=== PATIENT | male | born 1955 | race Caucasian/White ===

== ENCOUNTER 2018-07-13 09:18 | Outpatient (CLI) | payer BC, SELFPAY ==
--- NOTE | 2018-07-13 08:33 | DI.RAD_ITS ---
SYMPTOM/DIAGNOSIS: INJURY, PAIN LEFT KNEE: Three views. No priors. No acute or healing fracture or dislocation is identified. The soft tissues are grossly unremarkable. Vascular calcifications are seen in the soft tissues. IMPRESSION: No acute abnormality.
== END 2018-07-13 09:38 ==
PROVIDERS: PCP Internal Medicine; Visit Provider Student in an Organized Health Care Education/Training Program
DX: M25.562 Pain in left knee (principal)
CPT/HCPCS: 73562

== ENCOUNTER 2019-02-03 14:34 | Emergency (ER) | payer BC, SELFPAY ==
[2019-02-03 14:46] VITALS: BP 160/95; PULSE 85; RESP 16; TEMP 36.7; O2SAT 97
--- NOTE | 2019-02-03 15:46 | W.ED.GENAD ---
Discharge Plan Disposition Patient Disposition: HOME Condition: Good Discharge Details Chief Complaint: Laceration Clinical Impression: Laceration of left wrist Primary Care Provider: Juvencio Jane ED Provider: Yvonne Quiros Home Meds and New Rx's Prescriptions: Continued atorvastatin [Lipitor] 40 MG tablet 40 mg PO DAILY RF: 0 loratadine 10 MG tablet,disintegrating 10 mg PO DAILY RF: 0 aspirin [Aspir-81] 81 MG tablet,delayed release (DR/EC) 81 mg PO DAILY RF: 0 ibuprofen [Advil] 200 MG tablet 600 mg PO BID PRNRF: 0 Discharge Instructions Instructions: Laceration (ED) Additional Instructions: Keep wound clean, dry, covered. Monitor for signs of infection getting redness, warmth, drainage, increased pain, fever/chills. If you develop these or other new/worsening symtpoms please seek care urgently once again. Keep current dressing on for the next 24 hours, after that may change and replace with bandaid. Return in 7-10 days for suture removal. May wash with running water and soap but please do not soak. Referrals: Juvencio Jane [Primary Care Provider] - Discharge Data Discharge Date/Time-TO BE ENTERED AT DEPARTURE: 02/03/19 16:08 Medical Decision Making Patient is a 63-year-old [id number] male presents today with chief complaint of left wrist laceration. 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 Has a 3 cm flap laceration to the left wrist along the radial side. No sensory deficit. Wound into subcutaneous tissue, no active bleeding. Reports that tetanus was within the last 5 years. Denies other injury the time of the incident. Patient I discussed risk/benefits as well as expected procedural steps of the suture closure. He voiced understanding and wished to proceed. Please see procedure note. This is performed using standard sterile technique. Wound was copiously irrigated explored but depth in a bloodless field. No foreign body or debris was noted. Tolerated procedure well. Wound care was discussed in depth. He was given return precautions, in particular signs of infection. He will return to the emergency department in 7 to 10 days for suture removal. All his concerns were addressed and is agreement this plan. HPI General Mode of arrival: ambulatory. Date/Time Provider Initiated Documentation: 02/03/19 15:46. Limitations to Documentation: no limitations. Information obtained by: patient and RN notes reviewed. History of Present Illness 63 year old M presents to the emergency department with the chief complaint of left wrist laceration, described as mild, with intensity rated at 3. Quality is described as aching, and is localized to the left and upper extremity. Patient reports no radiation. Patient started experiencing this hour(s) and it has been constant. No relieving factors improve symptom(s), No exacerbating factors reported . Patient notes no other symptoms.. Patient did receive the following treatments prior to arrival, none Related Data Home Medications Medication Instructions Recorded Confirmed aspirin [Aspir-81] 81 mg PO DAILY tab-cap 11/15/15 02/03/19 atorvastatin [Lipitor] 40 mg PO DAILY tab-cap 11/15/15 02/03/19 ibuprofen [Advil] 600 mg PO BID PRN 11/15/15 02/03/19 loratadine 10 mg PO DAILY tab-cap 11/15/15 02/03/19 Allergies Allergy/AdvReac Type Severity Reaction Status Date / Time No Known Drug Allergies Allergy Unverified 02/03/19 14:50 General Stated Complaint: Laceration ORALIA: 4 Review of Systems Constitutional Constitutional: Reports as per HPI, Denies chills and Denies fever(s) Musculoskeletal Musculoskeletal: Reports as per HPI Integumentary/Breasts Skin/Breast: Reports as per HPI Neurologic Neurologic: Reports as per HPI, Denies sensory deficit and Denies paresthesias [facility] Social History Smoking/Tobacco Use Status: Never Alcohol Intake: current Alcohol Intake frequency: 0-2 drinks per day Substance use type: does not use Do you feel safe at home: Yes Do you feel safe in your relationship?: Yes Exam Const General: cooperative, healthy appearing, comfortable, no acute distress and well developed Nutritional Appearance: average body habitus and well nourished Orientation: alert and awake Resp Effort & Inspection: normal respiratory effort, able to speak in complete sentences and no respiratory distress Cardio Rate: regular rate Rhythm: regular rhythm Skin Trauma: laceration (3cm flap laceration to radial side left wrist) Neuro General: alert and awake Cognition: normal cognition Speech: speech normal Gait: normal gait Sensory Exam: no sensory deficits noted Extrem Left upper extremity: full ROM, normal capillary refill, no joint enlargement, wrist Details: tenderness (over area of laceration. No active bleeding), normal ROM and normal vascular exam; inspection abnormal (laceration) and no swelling and hand Details: normal to inspection; abnormal to inspection (left laceration) Hand/finger images: 1. laceration. No active bleeding. Into subcutaneous tissue Psych Appearance: grossly normal and well kempt Mental Status: mental status grossly normal Speech and Movement: speech and movement normal Course Vital Signs Vital signs: Vital Signs Temperature 36.7 C 02/03/19 14:46 Pulse 85 02/03/19 14:46 Respiratory Rate 16 02/03/19 14:46 Blood Pressure 160/95 H 02/03/19 14:46 Pulse Oximetry 97 02/03/19 14:46 Temperature 36.7 C 02/03/19 14:46 Temperature Source Tympanic 02/03/19 14:46 Pulse 85 02/03/19 14:46 Respiratory Rate 16 02/03/19 14:46 Respiratory Effort Non-Labored 02/03/19 14:49 Blood Pressure 160/95 H 02/03/19 14:46 Blood Pressure Position Sitting 02/03/19 14:46 Pulse Oximetry 97 02/03/19 14:46 Oxygen Delivery Method Room Air 02/03/19 14:46 Oxygen Flow Rate 0 02/03/19 14:46 Pain Level 3 02/03/19 14:50 Procedures Laceration Laceration 1: Site: upper extremity Side (If applicable): left Size (cm): 3 Description: flap Depth: simple, single layer Local Anesthetic: Lidocaine 1% Amount of anesthesia used (mL): 4 Pre-repair: wound explored, irrigated extensively and deep structures intact Skin layer closed with: nylon Size (cm): 5-0 Number of sutures: 7
[2019-02-03 16:10] VITALS: PULSE 86; RESP 16; TEMP 36.7; O2SAT 97
== END 2019-02-03 16:08 | disposition home or self-care (01) ==
PROVIDERS: Emergency Provider Physician Assistant; PCP Internal Medicine
DX: S61.512A Laceration without foreign body of left wrist, initial encounter (principal); W45.8XXA Other foreign body or object entering through skin, initial encounter
CPT/HCPCS: 12002

== ENCOUNTER 2019-02-11 09:17 | Emergency (ER) | payer BC, SELFPAY ==
[2019-02-11 09:22] VITALS: BP 143/87; PULSE 69; RESP 16; TEMP 36.4; O2SAT 95
--- NOTE | 2019-02-11 09:36 | ED.GENADUL_ITS ---
Discharge Plan Disposition Patient Disposition: HOME Condition: Improving Discharge Details Chief Complaint: SutureRem Clinical Impression: Encounter for removal of sutures Primary Care Provider: Juvencio Jane ED Provider: Cyrus Rodríguez Home Meds and New Rx's Prescriptions: Continued atorvastatin [Lipitor] 40 MG tablet 40 mg PO DAILY RF: 0 loratadine 10 MG tablet,disintegrating 10 mg PO DAILY RF: 0 aspirin [Aspir-81] 81 MG tablet,delayed release (DR/EC) 81 mg PO DAILY RF: 0 ibuprofen [Advil] 200 MG tablet 600 mg PO BID PRNRF: 0 Discharge Instructions Additional Instructions: May resume normal routine and activities. The Steri-Strips were crural and may be removed in 5 to 7 days time. Return for any acute concern Medical Decision Making 63-year-old male with left wrist laceration 8 days ago, presents for suture removal. Removed without difficulty, Steri-Strips placed, discussed with him home management. Stable for discharge. HPI General Mode of arrival: ambulatory . Date/Time Provider Initiated Documentation: 02/11/19 09:18 . Limitations to Documentation: no limitations . Information obtained by: patient . History of Present Illness 63 year old M presents to the emergency department with the chief complaint of Left wrist suture removal, no complaints, and is localized to the left and upper extremity. Patient started experiencing this day(s) No relieving factors imp rove symptom(s), No exacerbating factors reported . Patient notes no other symptoms.. Patient did receive the following treatments prior to arrival, none Related Data Home Medications Medication Instructions Recorded Confirmed aspirin [Aspir-81] 81 mg PO DAILY tab-cap 11/15/15 02/11/19 atorvastatin [Lipitor] 40 mg PO DAILY tab-cap 11/15/15 02/11/19 ibuprofen [Advil] 600 mg PO BID PRN 11/15/15 02/11/19 loratadine 10 mg PO DAILY tab-cap 11/15/15 02/11/19 Allergies Allergy/AdvReac Type Severity Reaction Status Date / Time No Known Drug Allergies Allergy Unverified 02/11/19 09:24 General Stated Complaint: SutureRem ORALIA: 5 Review of Systems Review of Systems Narrative: No fever, chills, discharge. [facility] Medical History (Updated 02/11/19 @ 09:25 by Laureen Moody) Hypercholesterolemia (Acute) Osteoarthritis (Chronic) Social History Smoking/Tobacco Use Status: Never Alcohol Intake: current Alcohol Intake frequency: 0-2 drinks per day Substance use type: does not use Do you feel safe at home: Yes Do you feel safe in your relationship?: Yes Exam Narrative Exam Narrative: GEN: awake, alert, oriented 3. Pleasant, well groomed, interactive. HEAD: Normocephalic, atraumatic EXT: Full ROM, no edema, no rash. Left volar wrist radial aspect with curvili near healing laceration. No erythema or discharge. Neuro: Grossly normal neurologic exam, conversant, interactive. Psych: Speech fluent, thoughts congruent, affect normal Course Vital Signs Vital signs: Vital Signs Temperature 36.4 C L 02/11/19 09:22 Pulse 69 02/11/19 09:22 Respiratory Rate 16 02/11/19 09:22 Blood Pressure 143/87 H 02/11/19 09:22 Pulse Oximetry 95 02/11/19 09:22 Temperature 36.4 C L 02/11/19 09:22 Temperature Source Skin 02/11/19 09:22 Pulse 69 02/11/19 09:22 Respiratory Rate 16 02/11/19 09:22 Respiratory Effort Non-Labored 02/11/19 09:25 Blood Pressure 143/87 H 02/11/19 09:22 Pulse Oximetry 95 02/11/19 09:22 Pain Level 0 02/11/19 09:22
== END 2019-02-11 09:38 | disposition home or self-care (01) ==
PROVIDERS: Emergency Provider Emergency Medicine; PCP Internal Medicine
DX: S61.512D Laceration without foreign body of left wrist, subsequent encounter (principal); Z48.02 Encounter for removal of sutures

== ENCOUNTER 2019-07-17 15:43 | Outpatient (CLI) | payer BC, SELFPAY ==
--- NOTE | 2019-07-17 15:30 | DI.RAD_ITS ---
EXAM: XR HAND LT COMPLETE INDICATION: left thumb pain. COMPARISON: No exams were available for comparison TECHNIQUE: 2D digital imaging was performed. FINDINGS: There are severe degenerative changes at the 1st carpal metacarpal joint. There is prominent periart icular spurring and subchondral cyst formation. Degenerative changes are also noted at the interphal angeal joints of the fingers and 1st metacarpophalangeal joint. IMPRESSION: Degenerative changes, most severe at the 1st carpal metacarpal joint. DATA REPOSITORY: RADIATION DOSE DELIVERED:
== END 2019-07-17 16:03 ==
PROVIDERS: PCP Internal Medicine; Visit Provider Physician Assistant
DX: M79.645 Pain in left finger(s) (principal); M18.12 Unilateral primary osteoarthritis of first carpometacarpal joint, left hand; M19.042 Primary osteoarthritis, left hand
CPT/HCPCS: 73130

== ENCOUNTER 2020-05-27 09:07 | Outpatient (CLI) | payer BC, SELFPAY ==
--- NOTE | 2020-05-27 09:06 | DI.RAD_ITS ---
EXAM: XR KNEE LT 3V AP,LAT,FABIOLA CLINICAL HISTORY: left knee pain. TECHNIQUE: 2D digital imaging was performed. COMPARISON: CR XR knee LT 3V AP,lat,fabiola from 07/13/2018 FINDINGS: There is no evidence of fracture but there is a knee joint effusion which probably signifies internal derangement. There is mild narrowing of the medial compartment. No prominent osteophytes. No oste ochondral defects evident. No ominous bone lesions. IMPRESSION: Mild degenerative change medial compartment. Joint effusion noted. This may signify an internal kamala angement. DATA REPOSITORY: RADIATION DOSE DELIVERED:
== END 2020-05-27 09:27 ==
PROVIDERS: PCP Internal Medicine; Visit Provider Student in an Organized Health Care Education/Training Program
DX: M17.12 Unilateral primary osteoarthritis, left knee (principal); M25.462 Effusion, left knee
CPT/HCPCS: 73562

== ENCOUNTER 2021-01-21 02:24 | Outpatient (CLI) | payer BC, SELFPAY ==
--- NOTE | 2021-01-21 09:45 | DI.MRI_ITS ---
Exam(s) MR LOWER JOINT LT WO EXAM: MR LOWER JOINT LT WO CLINICAL HISTORY: LT KNEE PAIN, INTERNAL DERANGEMENT,M23.92. TECHNIQUE: Multiplanar multisequence MRI was performed.. COMPARISON: Plain films 27 May 2020 FINDINGS: BONES/JOINTS: No evidence of fracture. No evidence of bone lesion. Cartilage thinning over the holguin la, mild. No focal defect.. Severe cartilage thinning over the medial femoral condyle extending eva n to and involving underlying bone. Some adjacent high signal in the marrow. Thinning cartilage ove r medial tibial plateau but no focal defect. Mild cartilage thinning lateral femoral tibial joint. Moderate-sized joint effusion. LIGAMENTS: Anterior and posterior cruciate ligaments are intact. The medial and lateral collateral ligaments are intact. SOFT TISSUES: Mild anterior edema. Menisci: Degenerative changes of the medial meniscus particularly body and posterior horn with periph eral displacement. Horizontal inferior surfacing tear of the posterior horn abnormal stellate signal in the body. Lateral meniscus minimal degenerative changes. IMPRESSION: Degenerative changes of the medial femoral tibial joint compartment with irregular cartilage thinning extending down to bone of the medial femoral condyle. Degenerative changes of the medial meniscus w ith superimposed horizontal tear of the posterior horn and complex signal in the body. DATA REPOSITORY:
== END 2021-01-21 02:44 ==
PROVIDERS: PCP Internal Medicine; Visit Provider Student in an Organized Health Care Education/Training Program
DX: M23.92 Unspecified internal derangement of left knee (principal); M17.12 Unilateral primary osteoarthritis, left knee
CPT/HCPCS: 73721

== ENCOUNTER 2021-05-13 01:41 | Outpatient (CLI) | payer BC, SELFPAY ==
--- NOTE | 2021-05-13 10:31 | DI.RAD_ITS ---
Exam(s) XR HIP RT COMPLETE AP PELVIS EXAM: XR HIP RT COMPLETE AP PELVIS CLINICAL HISTORY: eval R hip,RT HIP PAIN, M25.551 TECHNIQUE: COMPARISON: No exams were available for comparison FINDINGS: Three views were obtained. There is moderate loss of the cartilaginous joint space of the right hip superiorly. There is subchondral sclerosis of the acetabulum and moderate marginal osteophyte for ma y villanueva of the acetabulum and to a lesser degree the femoral head. There are similar changes of moderate DJD of the left hip. IMPRESSION: Moderate DJD both hips. RADIATION DOSE DELIVERED: Total DLP
== END 2021-05-13 02:01 ==
PROVIDERS: PCP Internal Medicine; Visit Provider Student in an Organized Health Care Education/Training Program
DX: M25.551 Pain in right hip (principal); M16.11 Unilateral primary osteoarthritis, right hip
CPT/HCPCS: 73502

== ENCOUNTER 2021-07-10 00:57 | Outpatient (CLI) | payer BC, SELFPAY ==
--- NOTE | 2021-07-10 07:30 | DI.RAD_ITS ---
Exam(s) RF JOINT INJECTION FLUORO GUID EXAM: RF JOINT INJECTION FLUORO GUID CLINICAL HISTORY: R HIP INJ UNDER FLUORO,rt hip pain, m25.551 TECHNIQUE: Fluoroscopy provided. Radiologist not present. CONTRAST MATERIAL: None COMPARISON: No exams were available for comparison FINDINGS: Fluoroscopy was provided for Dr. Reyna during right hip steroid injection.. Submitted image(s) reveal needle tip at the lateral aspect femoral head-neck level. Radiopaque contr ast seen joint space Please refer to the procedure report for complete details. Cumulative Dose: justyna Pierson=0.45 mGy IMPRESSION: RADIATION DOSE DELIVERED:
--- NOTE | 2021-07-10 13:40 | W.PROCNOTE ---
Date of service: 07/10/21 Time of Service: 13:36 Procedure Note Date of procedure: 07/10/21 Procedure: Right Hip Injection with Fluoroscopic Guidance Surgeon/Proceduralist/Physician: Alfonso Reyna Procedure Diagnosis: Right Hip Osteoarthritis Procedure Indications: Christopher has had persistent pain of the RIGHT hip and groin. Noninvasive measures have been tried. To serve as both diagnostic and therapeutic, an injection under fluoroscopy was recommended. I had discussed the risks of the procedure and the patient elected to proceed. Procedure Description: Christopher was greeted in the flouroscopy room. The correct side was identified and the consent was reviewed with the patient and signed. The patient was then placed in the supine position on the fluoroscopy table. The RIGHT hip was then prepped with Chloraprep. The anterolateral injection starting point was identiifed by bony landmarks and fluoroscopy. The skin and soft tissue in the tract of the injection was anesthetized with 1% Lidocaine. A spinal needle was then inserted deep into the hip joint at the level of the lateral femoral neck under fluoroscopic guidance. A small amount of Omnipaque solution was injected to confirm intraarticular placement. Once confirmed, the hip was injected with 6cc of 0.5% Bupivicaine and 80mg of Depo-Medrol. A bandaid was placed on the injection site. The patient tolerated the procedure well and noted improvement in pre-injection pain.
[2021-07-10] MEDS: Bupivacaine 0.5% Pres-Free 10 ML VIAL 5 ML IJ (13:47)
[2021-07-10] MEDS: Omnipaque 300 MG/ML 10 ML BTL IJ (13:47)
[2021-07-10] MEDS: methylPREDNISolone ACETATE 80 MG/ML VIAL IM (13:48)
== END 2021-07-10 01:17 ==
PROVIDERS: PCP Internal Medicine; Visit Provider Student in an Organized Health Care Education/Training Program
DX: M25.551 Pain in right hip (principal); M16.11 Unilateral primary osteoarthritis, right hip; R10.31 Right lower quadrant pain
CPT/HCPCS: 77002; J1040

== ENCOUNTER → 2022-03-05 02:49 | Outpatient (CLI) | payer MEDICARE, SELFPAY ==
[2022-03-05] MEDS: Omnipaque 300 MG/ML 10 ML BTL IJ (14:02)
[2022-03-05] MEDS: methylPREDNISolone ACETATE 80 MG/ML VIAL IM (14:03)
[2022-03-05] MEDS: Bupivacaine 0.5% Pres-Free 10 ML VIAL 3 ML IJ (14:03)
--- NOTE | 2022-03-05 14:10 | DI.RAD_ITS ---
Exam(s) RF JOINT INJECTION FLUORO GUID EXAM: RF JOINT INJECTION FLUORO GUID CLINICAL HISTORY: ARTHRITIS RT HIP, RT HIP PAIN, FLUORO GUIDED INJECTION,M16.11 TECHNIQUE: 2D and realtime digital imaging was performed. COMPARISON: No exams were available for comparison FINDINGS: C-arm fluoroscopy was utilized by Dr. Reyna during right hip injection. Hard copy shows intra-art icular injection of the right hip. IMPRESSION: RADIATION DOSE DELIVERED: justyna Pierson=0.81 mGy Total DLP
--- NOTE | 2022-03-05 14:20 | W.PROCNOTE ---
Date of service: 03/05/22 Time of Service: 14:05 Procedure Note Date of procedure: 03/05/22 Procedure: Right Hip Injection with Fluoroscopic Guidance Surgeon/Proceduralist/Physician: Alfonso Reyna Procedure Diagnosis: Right Hip Osteoarthritis Procedure Indications: Christopher has had persistent pain of the RIGHT hip and groin. Noninvasive measures have been tried with previous success to an injection. To serve as both diagnostic and therapeutic, an injection under fluoroscopy was recommended. I had discussed the risks of the procedure and the patient elected to proceed. Procedure Description: Christopher was greeted in the flouroscopy room. The correct side was identified and the consent was reviewed with the patient and signed. The patient was then placed in the supine position on the fluoroscopy table. The RIGHT hip was then prepped with Chloraprep. The anterolateral injection starting point was identiifed by bony landmarks and fluoroscopy. The skin and soft tissue in the tract of the injection was anesthetized with 1% Lidocaine. A spinal needle was then inserted deep into the hip joint at the level of the lateral femoral neck under fluoroscopic guidance. A small amount of Omnipaque solution was injected to confirm intraarticular placement. Once confirmed, the hip was injected with 5cc of 0.5% Bupivicaine and 80mg of Depo-Medrol. A bandaid was placed on the injection site. The patient tolerated the procedure well and noted improvement in pre-injection pain.
== END ==
PROVIDERS: PCP Internal Medicine; Visit Provider Student in an Organized Health Care Education/Training Program
DX: M16.11 Unilateral primary osteoarthritis, right hip (principal); M25.551 Pain in right hip
CPT/HCPCS: 20610; 77002; J1040

== ENCOUNTER 2023-12-27 11:39 | Outpatient (CLI) | payer MEDICARE, SELFPAY ==
--- NOTE | 2023-12-27 08:15 | DI.RAD_ITS ---
Exam(s) XR HAND RT COMPLETE EXAM: XR HAND RT COMPLETE CLINICAL HISTORY: RIGHT HAND PAIN. TECHNIQUE: 2D digital imaging was performed of the right hand. Three images were obtained. AP, late ral and oblique views were obtained. COMPARISON: No exams were available for comparison FINDINGS: BONES: No acute fracture is present. No bony destructive lesion is seen. JOINTS: No dislocation present. There are marked degenerative changes seen in the hand characterized by joint space narrowing and osteophytes. The findings are most marked at the 1st CMC joint and the interphalangeal joints of the fingers. SOFT TISSUE: Normal. IMPRESSION: Marked osteoarthritis of the hand. DATA REPOSITORY: RADIATION DOSE DELIVERED:
== END 2023-12-27 11:40 | disposition home or self-care (01) ==
PROVIDERS: PCP Internal Medicine; Referring Provider Internal Medicine; Visit Provider Physician Assistant
DX: M17.12 Unilateral primary osteoarthritis, left knee; M18.11 Unilateral primary osteoarthritis of first carpometacarpal joint, right hand; M19.041 Primary osteoarthritis, right hand
CPT/HCPCS: 20610; J1010; 73130

== ENCOUNTER 2024-06-19 15:54 | Outpatient (CLI) | payer MEDICARE, SELFPAY ==
--- NOTE | 2024-06-19 15:38 | DI.RAD_ITS ---
Exam(s) XR KNEE LT 4V AP,LAT,FABIOLA,PAT EXAM: XR KNEE LT 4V AP,LAT,FABIOLA,PAT CLINICAL HISTORY: L knee pain. TECHNIQUE: 2D digital imaging was performed. Three views. COMPARISON: CR XR KNEE LT 3V AP,LAT,FABIOLA from 05/27/2020 MR MR LOWER JOINT LT WO from 01/21/2021 FINDINGS: BONES: No acute fracture is present. No bony destructive lesion is seen. JOINTS: The moderate to severe narrowing of the medial femoral tibial joint space, progressing since the prior exam. Mild periarticular spurring. Mild spurring at the articular aspect of the patella. The patellofemoral joint is maintained. No joint effusion is seen. SOFT TISSUE: Vascular calcifications. IMPRESSION: Moderate to severe degenerative changes of the medial femoral tibial joint DATA REPOSITORY: RADIATION DOSE DELIVERED:
== END 2024-06-19 15:55 | disposition home or self-care (01) ==
LOC: DIORS 15:54
PROVIDERS: PCP Internal Medicine; Referring Provider Internal Medicine; Visit Provider Student in an Organized Health Care Education/Training Program
DX: M17.12 Unilateral primary osteoarthritis, left knee
CPT/HCPCS: 20610; J1010; 73564